=== PATIENT | male | born 1950 | race Caucasian/White ===

== ENCOUNTER 2020-10-04 15:51 | Emergency (ER) | payer MEDICARE, OTHER ==
--- NOTE | 2020-10-04 16:19 | ED General ---
General Chief Complaint: Altered Mental Status Stated Complaint: AMS Source of Information: Patient, RN/MD (Dr. Alvarado) History of Present Illness Date Seen by Provider: Oct 04, 2020 Time Seen by Provider: 15:57 Initial Comments 70 yo male presents with his to the ED with concern about his erratic driving and behavior this afternoon. He was at a earlier today and was drinking after that. He was pulled over by law enforcement for erratic driving and his was called and brought him to Dr. Alvarado's office to be seen. He had no acute findings on his urine. She did not have a way to run an alcohol level. He reportedly only drank 1 beer from what he told Dr. Alvarado. On arrival to the ED he reports drinking at least a 6 pack of beer a day and whiskey drinks as well. He states today he drank beer and whiskey but can not tell me how much he drank but thinks he "drank more than I should have been drinking". He denies having pain anywhere. He is hard of hearing. He denies any head injury. Allergies and Home Medications Allergies Coded Allergies: No Known Drug Allergies (Unverified , 10/04/20) Patient Home Medication List Home Medication List Reviewed: Yes Review of Systems Review of Systems Constitutional: no symptoms reported EENTM: other (blood shot eyes); No eye pain Respiratory: no symptoms reported Cardiovascular: no symptoms reported Gastrointestinal: no symptoms reported Genitourinary: no symptoms reported Musculoskeletal: no symptoms reported Skin: no symptoms reported Psychiatric/Neurological: Anxiety Hematologic/Lymphatic: No Symptoms Reported Past Retolcm-Caqdld-Zaxoki Hx Past Med/Social Hx: Reviewed Nursing Past Med/Soc Hx Patient Social History Recent Foreign Travel: No Contact w/Someone Who Travel: No Physical Abuse: No Sexual Abuse: No Mistreated: No Fear: No Past Medical History Respiratory: No Cardiac: Yes Hypertension Physical Exam Vital Signs Vital Signs - First Documented 10/04/20 16:15 Temp 36.2 Pulse 75 Resp 20 B/P (MAP) 135/112 (120) Pulse Ox 97 O2 Delivery Room Air Capillary Refill : Height, Weight, BMI Height: '" Weight: lbs. oz. kg; BMI Method: General Appearance: WD/WN, Anxious HEENT: PERRL/EOMI, Other (conjunctival injection bilaterally) Neck: Full Range of Motion, Non Tender, Supple Respiratory: Chest Non Tender, Lungs Clear, Normal Breath Sounds, No Accessory Muscle Use, No Respiratory Distress Cardiovascular: Regular Rate, Rhythm, Normal Peripheral Pulses Gastrointestinal: Normal Bowel Sounds, No Pulsatile Mass, Soft Rectal: Deferred Extremity: Normal Capillary Refill, Normal Range of Motion, Non Tender, No Pedal Edema Neurologic/Psychiatric: Alert, Oriented x3, acetylene gas compressor II-XII Norm as Tested Skin: Normal Color, Warm/Dry Progress/Results/Core Measures Suspected Sepsis SIRS Temperature: Pulse: Respiratory Rate: Laboratory Tests 10/04/20 16:09: White Blood Count 11.4H Blood Pressure / Mean: Laboratory Tests 10/04/20 16:09: Creatinine 0.62, Platelet Count 195, Total Bilirubin 0.6 Results/Orders Lab Results Laboratory Tests Test 10/04/20 16:09 10/04/20 16:54 Range/Units White Blood Count 11.4 H 4.3-11.0 10^3/uL Red Blood Count 4.93 4.35-5.85 10^6/uL Hemoglobin 17.4 13.3-17.7 G/DL Hematocrit 48 40-54 % Mean Corpuscular Volume 97 80-99 FL Mean Corpuscular Hemoglobin 35 H 25-34 PG Mean Corpuscular Hemoglobin Concent 36 32-36 G/DL Red Cell Distribution Width 11.9 10.0-14.5 % Platelet Count 195 130-400 10^3/uL Mean Platelet Volume 10.5 H 7.4-10.4 FL Immature Granulocyte % (Auto) 0 % Neutrophils (%) (Auto) 46 42-75 % Lymphocytes (%) (Auto) 41 12-44 % Monocytes (%) (Auto) 6 0-12 % Eosinophils (%) (Auto) 7 0-10 % Basophils (%) (Auto) 0 0-10 % Neutrophils # (Auto) 5.2 1.8-7.8 X 10^3 Lymphocytes # (Auto) 4.6 H 1.0-4.0 X 10^3 Monocytes # (Auto) 0.7 0.0-1.0 X 10^3 Eosinophils # (Auto) 0.8 H 0.0-0.3 10^3/uL Basophils # (Auto) 0.0 0.0-0.1 10^3/uL Immature Granulocyte # (Auto) 0.0 0.0-0.1 10^3/uL Sodium Level 139 135-145 MMOL/L Potassium Level 4.0 3.6-5.0 MMOL/L Chloride Level 103 98-107 MMOL/L Carbon Dioxide Level 21 21-32 MMOL/L Anion Gap 15 H 5-14 MMOL/L Blood Urea Nitrogen 6 L 7-18 MG/DL Creatinine 0.62 0.60-1.30 MG/DL Estimat Glomerular Filtration Rate > 60 BUN/Creatinine Ratio 10 Glucose Level 119 H 70-105 MG/DL Calcium Level 9.3 8.5-10.1 MG/DL Corrected Calcium 8.9 8.5-10.1 MG/DL Total Bilirubin 0.6 0.1-1.0 MG/DL Aspartate Amino Transf (AST/SGOT) 58 H 5-34 U/L Alanine Aminotransferase (ALT/SGPT) 44 0-55 U/L Alkaline Phosphatase 92 40-136 U/L Total Protein 8.0 6.4-8.2 GM/DL Albumin 4.5 3.2-4.5 GM/DL Serum Alcohol 250 H <10 MG/DL Smear Scan OK Urine Color YELLOW Urine Clarity CLEAR Urine pH 6.0 5-9 Urine Specific [place] <=1.005 1.016-1.022 Urine Protein NEGATIVE NEGATIVE Urine Glucose (UA) NEGATIVE NEGATIVE Urine Ketones NEGATIVE NEGATIVE Urine Nitrite NEGATIVE NEGATIVE Urine Bilirubin NEGATIVE NEGATIVE Urine Urobilinogen 0.2 < = 1.0 MG/DL Urine Leukocyte Esterase NEGATIVE NEGATIVE Urine RBC (Auto) NEGATIVE NEGATIVE Urine RBC NONE /HPF Urine WBC RARE /HPF Urine Squamous Epithelial Cells 0-2 /HPF Urine Crystals NONE /LPF Urine Bacteria NEGATIVE /HPF Urine Casts NONE /LPF Urine Mucus NEGATIVE /LPF Urine Culture Indicated NO Urine Opiates Screen NEGATIVE NEGATIVE Urine Oxycodone Screen NEGATIVE NEGATIVE Urine Methadone Screen NEGATIVE NEGATIVE Urine Propoxyphene Screen NEGATIVE NEGATIVE Urine Barbiturates Screen NEGATIVE NEGATIVE Ur Tricyclic Antidepressants Screen NEGATIVE NEGATIVE Urine Phencyclidine Screen NEGATIVE NEGATIVE Urine Amphetamines Screen NEGATIVE NEGATIVE Urine Methamphetamines Screen NEGATIVE NEGATIVE Urine Benzodiazepines Screen NEGATIVE NEGATIVE Urine Cocaine Screen NEGATIVE NEGATIVE Urine Cannabinoids Screen NEGATIVE NEGATIVE My Orders Orders - PETER MONDRAGON MD Ua Culture If Indicated (10/04/20 16:16) Cbc With Automated Diff (10/04/20 16:16) Comprehensive Metabolic Panel (10/04/20 16:16) Alcohol (12/28/20 16:16) Drug Screen Stat (Urine) (10/04/20 16:16) Ed Iv/Invasive Line Start (10/04/20 16:16) Ct Head Wo (10/04/20 16:16) Vital Signs/I&O 10/04/20 16:15 Temp 36.2 Pulse 75 Resp 20 B/P (MAP) 135/112 (120) Pulse Ox 97 O2 Delivery Room Air Capillary Refill : Progress Note #1: Progress Note Pt admits to drinking "more drinks today than I should have had" and appears to be intoxicated. Will check labs and CT head to evaluate for other acute medical issues causing his symptoms such as acute stroke, bleeding, electrolyte imbalance. Progress Note #2: Time: 16:48 Progress Note CBC, Chemistry are stable without acute significant abnormality. His Alcohol level is 250, which goes along with his self reported claim of drinking too much today. No acute significant abnormality on his CT scan Progress Note #3: Progress Note UA and UDS negative for acute significant abnormality. Advised pt and family that he did not have signs of a stroke or electrolyte abnormality but certainly an elevated alcohol level that could be causing his symptoms. Encouraged to not drink to excess and follow up with clinic Diagnostic Imaging Diagonstic Imaging: CT Plain Films/CT/US/NM/MRI: head Comments [facility] [place] NAME: ELICIA YUEN [facility] REC#: [id number] PT STATUS: REG ER : 1950 PHYSICIAN: PETER MONDRAGON MD ADMIT DATE: 10/04/20/ER FS Draft Date of Exam:10/04/20 CT HEAD WO CLINICAL INDICATION: Patient is alcohol intoxicated and confused. EXAM: Axial CT scan of the brain without IV contrast with coronal and sagittal reformatted images. Auto Exposure Controls were utilized during the CT exam to meet ALARA standards for radiation dose reduction. COMPARISON: None. FINDINGS: There is slight motion artifact which obscures portions of the brainstem, posterior fossa, and portions of the brain near the skull. There is no evidence of acute cerebral infarct, intracranial hemorrhage, or gross mass effect. There is diffuse brain parenchymal volume loss. There are small patchy areas of low-attenuation white matter changes involving both cerebral hemispheres, likely representing chronic small vessel ischemic disease. There is normal rosario-white matter distinction. There is no significant midline shift or herniation. There is no evidence of hydrocephalus. The basal cisterns are unremarkable. The skull, extracranial soft tissue, and orbits are unremarkable. The paranasal sinuses are unremarkable. Temporal bones show no significant abnormality. IMPRESSION: 1: Motion artifact limits evaluation of portions of the brain. There is no gross acute intracranial process. 2: Age-related brain parenchymal changes. Dictated on workstation # [id number] Dict: 10/04/20 1639 Trans: 10/04/20 1643 [facility] [id number] Interpreted by: SHAYY CHESTER MD Electronically signed by: Departure Impression Primary Impression: Alcohol intoxication Qualified Codes: F10.920 - Alcohol use, unspecified with intoxication, uncomplicated Disposition: 01 HOME, SELF-CARE Condition: Stable Departure-Patient Inst. Decision time for Depature: 17:01 Referrals: NO,LOCAL PHYSICIAN (PCP/Family) Primary Care Physician Patient Instructions: Alcohol Intoxication ED, Alcohol Use Disorder ED Add. Discharge Instructions: Do not drink alcohol to excess. Do not drink alcohol and drive or operate a vehicle [facility] with [facility] for [facility] concerns. Your tests here do not show signs of infection or stroke. The alcohol level was over 3 times the legal driving limit. All discharge instructions reviewed with patient and/or family. Voiced understanding. PETER MONDRAGON MD Oct 04, 2020 16:19
[2020-10-04 16:32] LABS: BASOPHILS % (AUTO) 0 % (0-10); EOSINOPHILS % (AUTO) 7 % (0-10); HEMATOCRIT 48 % (40-54); HEMOGLOBIN 17.4 G/DL (13.3-17.7); LYMPHOCYTES % (AUTO) 41 % (12-44); MEAN CORPUSCULAR HEMOGLOBIN 35 PG (25-34); MEAN CORPUSCULAR HGB CONC 36 G/DL (32-36); MEAN CORPUSCULAR VOLUME 97 FL (80-99); MEAN PLATELET VOLUME 10.5 FL (7.4-10.4); MONOCYTES % (AUTO) 6 % (0-12); NEUTROPHILS % (AUTO) 46 % (42-75); PLATELET COUNT 195 10^3/uL (130-400); WHITE BLOOD COUNT 11.4 10^3/uL (4.3-11.0)
[2020-10-04 16:33] LABS: EOSINOPHILS # (AUTO) 0.8 10^3/uL (0.0-0.3); LYMPHOCYTES # (AUTO) 4.6 X 10^3 (1.0-4.0); MONOCYTES # (AUTO) 0.7 X 10^3 (0.0-1.0); NEUTROPHILS # (AUTO) 5.2 X 10^3 (1.8-7.8)
[2020-10-04 16:39] LABS: BUN/CREATININE RATIO 10; CARBON DIOXIDE 21 MMOL/L (21-32); CHLORIDE 103 MMOL/L (98-107); CREATININE SERUM 0.62 MG/DL (0.60-1.30); GFR ESTIMATED > 60; SODIUM 139 MMOL/L (135-145)
[2020-10-04 16:40] LABS: ALANINE AMINOTRANSFERASE 44 U/L (0-55); ALBUMIN 4.5 GM/DL (3.2-4.5); ALKALINE PHOSPHATASE 92 U/L (40-136); BILIRUBIN,TOTAL 0.6 MG/DL (0.1-1.0); CALCIUM 9.3 MG/DL (8.5-10.1); GLUCOSE 119 MG/DL (70-105)
--- NOTE | 2020-10-04 16:43 | Diagnostic Imaging Report ---
CLINICAL INDICATION: Patient is alcohol intoxicated and confused. EXAM: Axial CT scan of the brain without IV contrast with coronal and sagittal reformatted images. Auto Exposure Controls were utilized during the CT exam to meet ALARA standards for radiation dose reduction. COMPARISON: None. FINDINGS: There is slight motion artifact which obscures portions of the brainstem, posterior fossa, and portions of the brain near the skull. There is no evidence of acute cerebral infarct, intracranial hemorrhage, or gross mass effect. There is diffuse brain parenchymal volume loss. There are small patchy areas of low-attenuation white matter changes involving both cerebral hemispheres, likely representing chronic small vessel ischemic disease. There is normal rosario-white matter distinction. There is no significant midline shift or herniation. There is no evidence of hydrocephalus. The basal cisterns are unremarkable. The skull, extracranial soft tissue, and orbits are unremarkable. The paranasal sinuses are unremarkable. Temporal bones show no significant abnormality. IMPRESSION: 1: Motion artifact limits evaluation of portions of the brain. There is no gross acute intracranial process. 2: Age-related brain parenchymal changes. Dictated by: Dictated on workstation # [id number]
[2020-10-04 16:45] LABS: SMEAR SCAN COMMENT OK
[2020-10-04 17:09] LABS: BACTERIA,URINE NEGATIVE /HPF; BILIRUBIN,URINE NEGATIVE (NEGATIVE); CLARITY,URINE CLEAR; COLOR,URINE YELLOW; GLUCOSE, URINE (UA) NEGATIVE (NEGATIVE); KETONES,URINE NEGATIVE (NEGATIVE); LEUKOCYTE ESTERASE ,URINE NEGATIVE (NEGATIVE); NITRITE,URINE NEGATIVE (NEGATIVE); PROTEIN,URINE NEGATIVE (NEGATIVE); SQUAMOUS EPITHELIAL CELL,UR 0-2 /HPF; WBC,URINE RARE /HPF
[2020-10-04 17:13] LABS: AMPHETAMINE SCREEN, URINE NEGATIVE (NEGATIVE); BARBITURATE SCREEN URINE NEGATIVE (NEGATIVE); BENZODIAZEPINES SCREEN URINE NEGATIVE (NEGATIVE); CANNABINOID SCREEN, URINE NEGATIVE (NEGATIVE); COCAINE SCREEN URINE NEGATIVE (NEGATIVE); METHADONE STAT NEGATIVE (NEGATIVE); METHAMPHETAMINE SCREEN URINE S NEGATIVE (NEGATIVE); OPIATE SCREEN URINE NEGATIVE (NEGATIVE); OXYCODONE STAT NEGATIVE (NEGATIVE); PROPOXYPHENE STAT NEGATIVE (NEGATIVE); TRICYCLIC ANTIDEPRESSANTS SCRE NEGATIVE (NEGATIVE)
[2020-10-04 17:17] VITALS: BP 137/89
== END 2020-10-04 17:15 | disposition home or self-care (01) ==
LOC: ER FS 15:53
DX: F10.129 Alcohol abuse with intoxication, unspecified (principal); F41.9 Anxiety disorder, unspecified
CPT/HCPCS: 36415; 70450; 80053; 80306; 81000; 85025; 99284; G0480; 80320

== ENCOUNTER 2023-02-02 05:28 | Outpatient (CLI) | payer OTHER ==
[~2023-02-02] VITALS: Ht 177.8 cm; Wt 81.8 kg
[2023-02-02] MEDS ORDERED: LISI40TA9 PO (10:24)
[2023-02-02] MEDS ORDERED: MULT1CAP14 PO (10:24)
[2023-02-02] MEDS ORDERED: CHOL100048 PO (10:24)
[2023-02-02] MEDS ORDERED: DICL75TA2 PO (10:24)
[2023-02-02] MEDS ORDERED: FLUT9.9S NS (10:24)
[2023-02-02] MEDS ORDERED: VITA80009 PO (10:24)
[2023-02-02] MEDS ORDERED: TMSL.4C PO (10:24)
[2023-02-02] MEDS ORDERED: AMLO-251 PO (10:24)
[2023-02-02] MEDS ORDERED: CETI10TA17 PO (10:24)
[2023-02-02] MEDS ORDERED: OMEP20CA18 PO (10:24)
[2023-02-02] MEDS ORDERED: ALLO300T2 PO (10:24)
[2023-02-02] MEDS ORDERED: CYAN50009 PO (10:24)
== END 2023-02-02 11:02 | disposition home or self-care (01) ==
LOC: PREOP 05:28
PROVIDERS: ATTEND Otolaryngology Otolaryngology/Facial Plastic Surgery
DX: Z01.818 Encounter for other preprocedural examination (principal)

== ENCOUNTER 2023-02-09 06:55 | Day surgery (SDC) | payer MEDICARE, OTHER ==
[~2023-02-09] VITALS: Ht 177.8 cm; Wt 81.8 kg
[2023-02-09] VITALS (10 sets, daily range): BP systolic 138–164; BP diastolic 77–94
[~2023-02-09 06:55] MED LIST: ALLO300T2 PO; AMLO-251 PO; CETI10TA17 PO; CHOL100048 PO; CYAN50009 PO; DICL75TA2 PO; FLUT9.9S NS; LISI40TA9 PO; MULT1CAP14 PO; OMEP20CA18 PO; TMSL.4C PO; VITA80009 PO
[2023-02-09] MEDS ORDERED: LACTATED RINGERS 1,000 ML IV PRN (07:15)
[2023-02-09] MEDS ORDERED: LIDOCAINE/EPI 1%-1:100,000 (XYLOCAINE) 20ML ONE (07:38)
[2023-02-09 07:49] LABS: BASOPHILS % (AUTO) 0 % (0-10); EOSINOPHILS # (AUTO) 0.9 10^3/uL (0.0-0.3); EOSINOPHILS % (AUTO) 12 % (0-10); HEMATOCRIT 47 % (40-54); HEMOGLOBIN 16.7 g/dL (13.3-17.7); LYMPHOCYTES # (AUTO) 2.4 10^3/uL (1.0-4.0); LYMPHOCYTES % (AUTO) 32 % (12-44); MEAN CORPUSCULAR HEMOGLOBIN 35 pg (25-34); MEAN CORPUSCULAR HGB CONC 35 g/dL (32-36); MEAN CORPUSCULAR VOLUME 100 fL (80-99); MEAN PLATELET VOLUME 10.2 fL (9.0-12.2); MONOCYTES # (AUTO) 0.7 10^3/uL (0.0-1.0); MONOCYTES % (AUTO) 9 % (0-12); NEUTROPHILS # (AUTO) 3.4 10^3/uL (1.8-7.8); NEUTROPHILS % (AUTO) 46 % (42-75); PLATELET COUNT 161 10^3/uL (130-400); WHITE BLOOD COUNT 7.4 10^3/uL (4.3-11.0)
[2023-02-09 08:05] LABS: CALCIUM 8.3 MG/DL (8.5-10.1); CREATININE SERUM 0.73 MG/DL (0.60-1.30)
--- NOTE | 2023-02-09 08:06 | Progress Note-Pre Operative ---
Pre-Operative Progress Note Date of Available H&P: February 09, 2023 Date H&P Reviewed: February 09, 2023 Time H&P Reviewed: 07:30 History & Physical: H&P Reviewed, Patient Examed, No changes noted Changes from last HP none Pre-Operative Diagnosis: Right Vocal Cord Lesion JOAO MURPHY MD February 09, 2023 08:06
--- NOTE | 2023-02-09 08:07 | Progress Note-Post Operative ---
Post-Operative Progess Note Surgeon (s)/Marina Porter (s) Surgeon JOAO MURPHY MD Marina Porter n/a Pre-Operative Diagnosis Right Vocal Cord Lesion Post-Operative Diagnosis same Post-Op Procedure Note Date of Procedure: February 09, 2023 Name of Procedure Performed: Direct Laryngsocpy with REmval of Right Vocal Cord Lesion Description & Findings Description and Findings: n/a Anesthesia Type get Estimated Blood Loss minimal Packing none. Specimen(s) collected/removed right vcoal cord lesion JOAO MURPHY MD February 09, 2023 08:07
[2023-02-09] MEDS ORDERED: ONDANSETRON 4 MG/2 ML (SDV) Z0FRAN ONE (08:12)
[2023-02-09] MEDS ORDERED: LIDOCAINE PF 2% 5 ML (XYLOCAINE) VIAL ONE (08:12)
[2023-02-09] MEDS ORDERED: SUCCINYLCHOLINE INJ 20 MG/1 ML 10 ML VIAL ONE (08:12)
[2023-02-09] MEDS ORDERED: fentaNYL INJ 100 MCG/2 ML AMP ONE (08:12)
[2023-02-09] MEDS ORDERED: proPOfol 200 MG/20 ML (DIPRIVAN) VIAL IV ONE (08:12)
[2023-02-09] MEDS ORDERED: PROMETHAZINE INJ 25 MG/ML (PHENERGAN) AMP IV PRN (08:15)
[2023-02-09] MEDS ORDERED: HYDROcodone/APAP 5 MG/325 MG (LORTAB) TAB PO PRN (08:15)
[2023-02-09] MEDS ORDERED: SEVOFLURANE (ULTANE) 15 ML INHAL SOLN ONE (08:37)
[2023-02-09] MEDS ORDERED: ONDANSETRON 4 MG/2 ML (SDV) Z0FRAN IVP PRN (09:00)
[2023-02-09] MEDS ORDERED: MEPERIDINE (DEMEROL) INJ 50 MG/ML IVP ONE (09:00)
[2023-02-09] MEDS ORDERED: ACHD5005 PO (09:29)
== END 2023-02-09 10:35 | disposition home or self-care (01) ==
LOC: SDC 06:55
PROVIDERS: ATTEND Otolaryngology Otolaryngology/Facial Plastic Surgery
DX: J38.3 Other diseases of vocal cords (principal); F17.210 Nicotine dependence, cigarettes, uncomplicated
CPT/HCPCS: 36415; 80048; 85025; 87081; 93005

== ENCOUNTER 2023-07-12 05:31 | Outpatient (CLI) | payer OTHER ==
[~2023-07-12] VITALS: Ht 177.8 cm; Wt 85.6 kg
[~2023-07-12 05:31] MED LIST changes: +ACHD5005 PO
== END 2023-07-12 14:11 | disposition home or self-care (01) ==
LOC: PREOP 05:31
PROVIDERS: ATTEND Otolaryngology Otolaryngology/Facial Plastic Surgery
DX: Z01.818 Encounter for other preprocedural examination (principal)

== ENCOUNTER 2023-07-20 07:04 | Day surgery (SDC) | payer OTHER ==
[2023-07-20] VITALS (10 sets, daily range): BP systolic 114–162; BP diastolic 72–99
[~2023-07-20] VITALS: Ht 177.8 cm; Wt 85.6 kg
[2023-07-20] MEDS ORDERED: LACTATED RINGERS 1,000 ML 1,000 ML IV PRN (07:30)
[2023-07-20 08:22] LABS: BASOPHILS % (AUTO) 0 % (0-10); EOSINOPHILS # (AUTO) 0.4 10^3/uL (0.0-0.3); EOSINOPHILS % (AUTO) 5 % (0-10); HEMATOCRIT 42 % (40-54); HEMOGLOBIN 14.6 g/dL (13.3-17.7); LYMPHOCYTES # (AUTO) 1.8 10^3/uL (1.0-4.0); LYMPHOCYTES % (AUTO) 23 % (12-44); MEAN CORPUSCULAR HEMOGLOBIN 35 pg (25-34); MEAN CORPUSCULAR HGB CONC 35 g/dL (32-36); MEAN CORPUSCULAR VOLUME 100 fL (80-99); MEAN PLATELET VOLUME 10.6 fL (9.0-12.2); MONOCYTES # (AUTO) 0.5 10^3/uL (0.0-1.0); MONOCYTES % (AUTO) 7 % (0-12); NEUTROPHILS # (AUTO) 5.2 10^3/uL (1.8-7.8); NEUTROPHILS % (AUTO) 65 % (42-75); PLATELET COUNT 174 10^3/uL (130-400)
[2023-07-20 08:28] LABS: POTASSIUM 4.1 MMOL/L (3.6-5.0)
[2023-07-20 08:33] LABS: CREATININE SERUM 0.85 MG/DL (0.60-1.30)
[2023-07-20] MEDS ORDERED: ONDANSETRON INJECTION 4 MG/2 ML (SDV) ONE (08:44)
[2023-07-20] MEDS ORDERED: fentaNYL INJECTION 100 MCG/2 ML VIAL ONE (08:44)
[2023-07-20] MEDS ORDERED: NEOSTIGMINE 1 MG/1ML 10 ML VIAL ONE (08:44)
[2023-07-20] MEDS ORDERED: proPOfol INJECTION 200 MG/20 ML VIAL IV ONE (08:44)
[2023-07-20] MEDS ORDERED: dexAMETHasone INJ 10 MG/ML 1 ML VIAL ONE (08:44)
[2023-07-20] MEDS ORDERED: GLYCOPYRROLATE INJ 0.2 MG/ML 2 ML VIAL ONE (08:44)
[2023-07-20] MEDS ORDERED: LIDOCAINE PF 2% 5 ML VIAL ONE (08:44)
[2023-07-20] MEDS ORDERED: LIDOCAINE 2% w/EPI 1:100,000 20 ML VIAL ONE (08:50)
[2023-07-20] MEDS ORDERED: ONDANSETRON 4 MG ORAL DISSOLVE TABLET PO PRN (09:30)
[2023-07-20] MEDS ORDERED: ONDANSETRON INJECTION 4 MG/2 ML (SDV) IVP PRN ×2 (09:30→10:30)
--- NOTE | 2023-07-20 09:30 | Progress Note-Pre Operative ---
Pre-Operative Progress Note Date of Available H&P: Jul 20, 2023 Date H&P Reviewed: Jul 20, 2023 Time H&P Reviewed: 08:45 History & Physical: No changes noted Pre-Operative Diagnosis: GERD, regurg, hoarseness DREW STEWART MD Jul 20, 2023 09:30
--- NOTE | 2023-07-20 09:34 | Discharge Inst-Surgical ---
D/C Lap Instructions-TERRY Follow Up Activity as tolerated High Fiber Diet 25g or more per day Avoid Alcohol, Caffeine, Spicy [place] and Acid foods. Drink 64 fluid oz or more of fluids per day. Symptoms to Report: Fever over 101 degree F, Nausea/Vomiting If any problems/questions: Contact your physician or go to Emergency Room DREW STEWART MD Jul 20, 2023 09:34
--- NOTE | 2023-07-20 09:53 | Progress Note-Pre Operative ---
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
[2023-07-20] MEDS ORDERED: ROCURONIUM 50 MG/5 ML VIAL IV ONE (09:54)
--- NOTE | 2023-07-20 09:54 | Progress Note-Post Operative ---
Post-Operative Progess Note Surgeon (s)/Oil Well Cable Tool Driller (s) Surgeon JOAO MURPHY MD Oil Well Cable Tool Driller n/a Pre-Operative Diagnosis Recurrent Right Vocal Cord Lesion Post-Operative Diagnosis same Post-Op Procedure Note Date of Procedure: Jul 20, 2023 Name of Procedure Performed: Direct Laryngoscopy with Removal of Right Vocal Cord Lesion Description & Findings Description and Findings: n/a Anesthesia Type get Estimated Blood Loss minimal Packing none. Specimen(s) collected/removed right vocal cord lesion JOAO MURPHY MD Jul 20, 2023 09:54
[2023-07-20] MEDS ORDERED: PROMETHAZINE INJ 25 MG/ML VIAL IV PRN (10:00)
[2023-07-20] MEDS ORDERED: HYDROcodone/ACETAMINOPHEN 5 MG/325 MG TABLET PO PRN (10:00)
[2023-07-20] MEDS ORDERED: SEVOFLURANE (ULTANE) 15 ML INHAL SOLN ONE (10:12)
--- NOTE | 2023-07-20 10:27 | Progress Note-Post Operative ---
Post-Operative Progess Note Surgeon (s)/Cushion Stuffer (s) Surgeon DREW STEWART MD Cushion Stuffer: none Pre-Operative Diagnosis GERD, dysphagia, hoarseness Post-Operative Diagnosis reflux esophagitis(C), mild dist esoph stricture, small HH(2cm), moderate gastritis, no distal obstructions. Procedure & Operative Findings Date of Procedure 07/20/23 Procedure Performed/Findings EGD with bx and balloon dilatation. Anesthesia Type get Estimated Blood Loss Estimated blood loss (mL): minimal Specimens/Packing Specimens Removed ge jxn, antrum DREW STEWART MD Jul 20, 2023 10:27
--- NOTE | 2023-07-20 10:29 | Anesthesia-General Post-Op ---
General Patient Condition Mental Status/LOC: Same as Preop Cardiovascular: Satisfactory Nausea/Vomiting: Absent Respiratory: Satisfactory Pain: Controlled Complications: Absent Post Op Complications Complications None Follow Up Care/Instructions Patient Instructions None needed. Anesthesia/Patient Condition Patient Condition Patient is doing well, no complaints, stable vital signs, no apparent adverse anesthesia problems. No complications reported per nursing. KAREEM WICK CRNA Jul 20, 2023 10:29
[2023-07-20] MEDS ORDERED: fentaNYL INJECTION 100 MCG/2 ML VIAL IVP ONE (10:30)
[2023-07-20] MEDS ORDERED: ACHD5005 PO (11:34)
[2023-07-20] MEDS ORDERED: OMEP40CA6 PO (11:36)
--- NOTE | 2023-07-20 19:49 | OPERATIVE REPORT ---
DATE OF SERVICE: 07/20/2023 PREOPERATIVE DIAGNOSES: Hoarseness, nocturnal cough, reflux, regurgitation. POSTOPERATIVE DIAGNOSES: Reflux esophagitis [place] grade C with a mild distal esophageal stricture, small hiatal hernia, 2 cm in size; moderate to severe gastritis, no distal obstructions. PROCEDURE: EGD with biopsy and balloon dilatation. SURGEON: Drew Stewart MD ANESTHESIA: General endotracheal. ESTIMATED BLOOD LOSS: Minimal. FINDINGS: Reflux esophagitis [place] grade C with a mild distal esophageal stricture, small hiatal hernia, 2 cm in size; moderate to severe gastritis, no distal obstructions. DISPOSITION: The patient tolerated the procedure well. INDICATIONS: The patient is a 72-year-old male referred over to us by his ENT physician. This gentleman has a longstanding history of smoking and alcohol of greater than 60 years; however, states that he quit in recent months. He developed significant problems with a chronic cough, reflux and what sounds to be regurgitation versus episodes of vomiting. He did undergo an ultrasound, which did not show any gallstones. The patient also found to have vocal cord nodule, which has been monitored and he underwent a biopsy of the vocal cord under general anesthesia. Under the same anesthesia, we will proceed with our EGD. DESCRIPTION OF PROCEDURE: The patient was brought to the operating room and after general endotracheal intubation and after ENT had finished their procedure, the mouthpiece was applied. The endoscope was placed in the mouth, visualizing the pharynx and hypopharyngeal region. Vocal cords, epiglottis and vallecula identified and appeared to be normal. The endoscope was then gently intubated in the esophageal opening and esophagus insufflated. The endoscope was then advanced through the first, second, third portions of esophagus. At the level of GE junction, reflux esophagitis, [place] grade C identified as well as a mild distal esophageal stricture. A biopsy was taken of the GE junction with forceps with visualization of good hemostasis. A mild distal esophageal stricture was also identified. The endoscope was then advanced in the stomach and endoscope retroflexed, visualizing a small hiatal hernia approximately 2 cm in size. There was a moderate to severe gastritis more towards the stomach antrum, no formal ulcerations, polyps or any neoplasms. A biopsy was taken of the antrum to rule out H. pylori with visualization of good hemostasis. The endoscope was then advanced through the pylorus and the first and second portion of the duodenum, which appeared normal with no distal obstructions. The balloon was then placed in the stomach and pulled back to the area of the stricture. We then proceeded with graded dilatation in a stepwise fashion from 2, 4, then eventually 6 atmospheres of pressure or 20 mm in luminal diameter with 60 seconds in between. Once we hit 6 atmospheres of pressure, we encountered moderate resistance and left the balloon in place for approximately 120 seconds. The balloon was then desufflated and removed with visualization of good hemostasis as well as no mucosal tears. The endoscope was then slowly withdrawn while taking a second look and suctioning of residual air with no additional findings. The patient tolerated the procedure well. We will recommend continued medical management with the necessary lifestyle and dietary accommodation including maintenance of cessation of smoking and alcohol as well as avoidance of caffeinated beverages, spicy, greasy and acidic foods. He also needs to take in small and more frequent meals, avoidance of eating at night as well as head elevation while lying supine. He is currently on Protonix; however, we will also start him on omeprazole 40 mg daily to be taken at a separate time during the day. If he does have recurrent episodes of regurgitation, dysphagia or michael episodes of nausea and vomiting, we will have him follow up and proceed with further evaluation and testing. Job ID: [id number] DocumentID: [id number] Dictated Date: 07/20/2023 10:42:38 Graduate Student Date: 07/20/2023 19:47:00 Dictated By: DREW STEWART MD
== END 2023-07-20 12:40 | disposition home or self-care (01) ==
LOC: SDC 07:04
PROVIDERS: ATTEND Otolaryngology Otolaryngology/Facial Plastic Surgery
DX: D02.0 Carcinoma in situ of larynx (principal); K31.89 Other diseases of stomach and duodenum; K21.00 Gastro-esophageal reflux disease with esophagitis, without bleeding; K22.2 Esophageal obstruction; J30.0 Vasomotor rhinitis; K44.9 Diaphragmatic hernia without obstruction or gangrene; K29.70 Gastritis, unspecified, without bleeding; Z87.891 Personal history of nicotine dependence; Z79.899 Other long term (current) drug therapy
CPT/HCPCS: 36415; 80048; 85025; 87081; 88305

== ENCOUNTER → 2023-08-23 | Outpatient (CLI) | payer OTHER ==
[~2023-08-23] MED LIST changes: +IOHEXOL 350 MG/ML 100 ML (OMNIPAQUE 350) VIAL IV ONE; +NS 100 ML (IVPB) BAG IV ONE; +OMEP40CA6 PO
--- NOTE | 2023-08-23 13:03 | Diagnostic Imaging Report ---
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 65 cc of Omnipaque 350 was administered intravenously. One or more of the following dose reduction techniques were utilized: Automated exposure control (AEC), Adjustment of mA and/or kV according to patient size, Use of iterative reconstruction technique such as ASiR, CT scan done according to ALARA and image gently/image wisely COMPARISON: None. FINDINGS: 4 mm nodular thickening along the right aspect of the epiglottis as well as 5 mm thickening along the left aspect of the epiglottis. Scattered subcentimeter lymph nodes are seen in the neck. None are pathologically enlarged or abnormally enhancing. The parotid, submandibular, and thyroid glands are normal. The muscles of the neck are normal. Vessels of the neck demonstrate normal course, caliber, and enhancement. The visualized aerodigestive tract is normal. The visualized posterior fossa and brain is unremarkable. The visualized orbits and paranasal sinuses are normal. The cervical spine is normal. The visualized lung apices are clear. IMPRESSION: 4 mm nodular thickening along the right aspect of the epiglottis as well as 5 mm thickening along the left aspect of the epiglottis. Preepiglottic space is maintained. No apparent vocal cord lesion identified. No lymphadenopathy within the neck. Dictated by: Dictated on workstation # [id number]
== END ==
LOC: RAD 08:56
PROVIDERS: ATTEND Otolaryngology Otolaryngology/Facial Plastic Surgery
DX: C32.0 Malignant neoplasm of glottis (principal)
CPT/HCPCS: 70491

== ENCOUNTER → 2023-09-06 | Outpatient (RCR) | payer OTHER ==
[2023-08-23 09:23] LABS: ALBUMIN 3.6 GM/DL (3.2-4.5); BILIRUBIN,TOTAL 1.7 MG/DL (0.1-1.0); CALCIUM 9.1 MG/DL (8.5-10.1); CREATININE SERUM 0.82 MG/DL (0.60-1.30); POTASSIUM 4.5 MMOL/L (3.6-5.0); TOTAL PROTEIN 6.9 GM/DL (6.4-8.2)
[~2023-09-06] MED LIST changes: -IOHEXOL 350 MG/ML 100 ML (OMNIPAQUE 350) VIAL IV ONE; -NS 100 ML (IVPB) BAG IV ONE
== END | disposition home or self-care (01) ==
LOC: ONC 08-23 08:53
PROVIDERS: ATTEND Radiology Radiation Oncology
DX: Z51.0 Encounter for antineoplastic radiation therapy (principal); D02.0 Carcinoma in situ of larynx
CPT/HCPCS: 36415; 77280; 77290; 77295; 77300; 77334; 80053; 99205